=== PATIENT | female | born 1950 | race Caucasian/White ===

== ENCOUNTER → 2018-02-26 | Day surgery (SDC) | payer OTHER ==
--- NOTE | 2018-03-02 08:53 | PATH ---
Surgical Pathology Report Patient Name: MAXI OCAMPO [facility]. Rec. #: [id number] /Age/Gender: 1950 (Age: 67) / F Account: [id number] Location: [facility] Taken: 02/26/2018 Received: 02/26/2018 Reported: 02/28/2018 Physicians: Demi Roldan M.D. Specimen(s) Received RIGHT BREAST 9:00 RETRROAREOLAR REGION CORE BIOPSY Clinical History Ultrasound findings: Suspicious Final Diagnosis BREAST, RIGHT, 9:00 RETRO, CORE BIOPSY: BENIGN BREAST TISSUE SHOWING STROMAL FIBROSIS. Electronically Signed Kenya Thorpe M.D. Gross Description Received in formalin labeled "right breast biopsy 9:00 retro," is a 1.3 x 1.2 x 0.2 cm aggregate of goode-yellow, irregular to cylindrical portions of fibroadipose tissue. The formalin is filtered and the specimen is entirely submitted in one cassette. Time to formalin fixation: 2 minutes Total formalin fixation time: Approximately 28 hours. /02/27/2018 [facility]02/27/2018
== END | disposition home or self-care (01) ==
LOC: FRADUS-SUR 12:39
PROVIDERS: ATTEND Internal Medicine
PROC: 0HBT3ZX Excision of Right Breast, Percutaneous Approach, Diagnostic (ICD-10-PCS; principal; 2018-02-26)
DX: N60.31 Fibrosclerosis of right breast (principal); N63.10 Unspecified lump in the right breast, unspecified quadrant
CPT/HCPCS: 19083; 77065-TC; 87899; 88305-TC; A4648